=== PATIENT | male | born 1960 | race Caucasian/White ===

== ENCOUNTER 2018-11-13 16:20 | Emergency (ER) | payer OTHER, BC ==
[2018-11-13] MEDS ORDERED: Bupivacaine 0.5% 10 ML SDV INFILT ONE (16:21)
[2018-11-13] MEDS ORDERED: Diphtheria,Pertussis(Acell),Tetanus Vaccine 0.5 ML SDV IM ONE (16:32)
[2018-11-13] MEDS ORDERED: cefTRIAXone 1 GM Vial IM ONE (16:32)
--- NOTE | 2018-11-13 17:03 | EDM.PDOC ---
ED HPI GENERAL MEDICAL PROBLEM - General Stated Complaint: CUT FINGER Time Seen by Provider: 11/13/18 16:20 Source of Information: Reports: Patient, Family History Limitations: Reports: No Limitations - History of Present Illness INITIAL COMMENTS - FREE TEXT/NARRATIVE: 58 y.o.w.m came to the ed after he cut at work into his right little finger tip by accident. No loss of Function, no FB in wound. No N/V/D no Dizziness. No other acute med issues. BP 132/64 RR 18 Pulse ox 98% on RA Temp 36.6 Pulse 84 Onset Date: 11/13/18 Onset Time: 15:00 Duration: Minutes:, Hour(s): Location: Reports: Upper Extremity, Right (little finger) Quality: Reports: Ache, Burning, Dull Severity: Mild Improves with: Reports: Rest Worsens with: Reports: Movement Context: Reports: Trauma Associated Symptoms: Reports: No Other Symptoms - Related Data Allergies Allergy/AdvReac Type Severity Reaction Status Date / Time No Known Allergies Allergy Verified 11/13/18 17:06 Home Meds: Home Meds Cephalexin [Keflex] 500 mg PO Q6HR #40 capsule 11/13/18 [Rx] ED ROS GENERAL - Review of Systems Review Of Systems: See Below Constitutional: Reports: No Symptoms HEENT: Reports: No Symptoms Respiratory: Reports: No Symptoms Cardiovascular: Reports: No Symptoms Endocrine: Reports: No Symptoms GI/Abdominal: Reports: No Symptoms : Reports: No Symptoms Musculoskeletal: Reports: No Symptoms Skin: Reports: Wound (right little finger tip) Neurological: Reports: No Symptoms Psychiatric: Reports: No Symptoms Hematologic/Lymphatic: Reports: No Symptoms Immunologic: Reports: No Symptoms ED EXAM, SKIN/RASH Exam: See Below Exam Limited By: No Limitations General Appearance: Alert, WD/WN, Mild Distress Eye Exam: Bilateral Eye: Normal Inspection Ears: Normal External Exam Nose: Normal Inspection, Normal Mucosa Throat/Mouth: Normal Inspection, Normal Lips, Normal Voice, No Airway Compromise Head: Atraumatic, Normocephalic Neck: Normal Inspection, Supple, Non-Tender, Full Range of Motion Respiratory/Chest: No Respiratory Distress, Lungs Clear, Normal Breath Sounds, Chest Non-Tender Cardiovascular: Normal Peripheral Pulses, Regular Rate, Rhythm, No Edema, No Gallop, No Rub Peripheral Pulses: 2+: Brachial (R) GI/Abdominal: Normal Bowel Sounds, Soft, Non-Tender, No Distention (Male) Exam: Deferred Rectal (Males) Exam: Deferred Back Exam: Normal Inspection, Full Range of Motion Extremities: Normal Inspection, Normal Range of Motion, Non-Tender, Normal Capillary Refill Neurological: Alert, Oriented, CN II-XII Intact, Normal Cognition, Normal Gait Psychiatric: Normal Affect, Normal Mood Location, Skin: Upper Extremity, Right (5th finger tip) Lymphatic: No Adenopathy ED SKIN PROCEDURES - Laceration/Wound Repair Right Distal Digit - 5th (Baby) Appearance: Subcutaneous, Stellate, Moderately Contaminated Distal NVT: Neuro & Vascular Intact, No Tendon Injury Anesthetic Type: Local Local Anesthesia - Bupivicaine (Marcaine): 0.5% Plain Local Anesthetic Volume: 3cc Skin Prep: Providone-Iodine (Betadine) Saline Irrigation (cc's): 10 Exploration/Debridement/Repair: Wound Explored, In a Bloodless Field, Explored to Base, Minimal Debridement Suture Size: 4-0 Suture Type: Interrupted, Other (ethilon) Tetanus Status Addressed: Yes (given today) Complications: No Course - Vital Signs Text/Narrative:: 58 y.o.w.m came to the ed after he cut at work into his right little finger tip by accident. No loss of Function, no FB in wound. No N/V/D no Dizziness. No other acute med issues. BP 132/64 RR 18 Pulse ox 98% on RA Temp 36.6 Pulse 84 PE: WNWD W M with a left 5th finger laceration Imaging: Not indicated Procedure: Please see not above Impression: Laceration right 5th finger tip TxL Wound repair, Neosporin ointment, tube gaze, Rocephin, TD Reexam: Improved Plan: D/C with instruction Last Recorded V/S: Last Vital Signs Temp 36.6 C 11/13/18 16:20 Pulse 78 11/13/18 16:20 Resp 14 11/13/18 16:20 BP 132/64 11/13/18 16:20 Pulse Ox 99 11/13/18 16:20 - Orders/Labs/Meds Orders: Active Orders 24 hr Category Date Time Status Vaccines to be Administered [RC] PER UNIT ROUTINE Care 11/13/18 16:33 Active Meds: Medications Discontinued Medications Generic Name Dose Route Start Last Admin Trade Name Freq PRN Reason Stop Dose Admin Ceftriaxone Sodium 1 gm 11/13/18 16:32 11/13/18 17:20 Rocephin IM 11/13/18 16:33 1 gm ONETIME ONE Administration Diphtheria/Tetanus/Acell Pertussis 0.5 ml 11/13/18 16:32 11/13/18 17:06 Adacel IM 11/13/18 16:33 0.5 ml .ONCE ONE Administration Departure - Departure Time of Disposition: 17:05 Disposition: Home, Self-Care 01 Condition: Good Clinical Impression: Laceration - Discharge Information Prescriptions: Cephalexin [Keflex] 500 mg PO Q6HR #40 capsule Instructions: VIS, Diphtheria, Tetanus, and Pertussis (DTaP) - CDC (08/29/2006) , Laceration Care, Adult, [id number] Referrals: Adonay Barbour MD [Primary Care Provider] - Forms: ED Department Discharge Additional Instructions: Please apply Neosporin ointment to wound twice daily for 5 days. Wound check in 2-3 days. Suture removal in 10-14 days. Please take Keflex as recommended, please come back if your symptoms get worse acutely - My Orders Last 24 Hours: My Active Orders 11/13/18 16:33 Vaccines to be Administered [RC] PER UNIT ROUTINE - Assessment/Plan Last 24 Hours: My Active Orders 11/13/18 16:33 Vaccines to be Administered [RC] PER UNIT ROUTINE
== END 2018-11-13 18:00 | disposition home or self-care (01) ==
LOC: FB.ED 16:20
DX: S61.216A Laceration without foreign body of right little finger without damage to nail, initial encounter (principal); Z23 Encounter for immunization; W26.8XXA Contact with other sharp object(s), not elsewhere classified, initial encounter; Y99.0 Civilian activity done for income or pay
CPT/HCPCS: 12002; 90471; 90715; 96372; 99282; J0696; J3490